=== PATIENT | female | born 1995 | race Caucasian/White ===

== ENCOUNTER 2017-08-20 17:02 | Emergency (ER) | payer MEDICAID ==
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
[2017-08-20] MEDS ORDERED: Ketorolac 60 MG/2 ML SDV IM ONE (18:38)
[2017-08-20] MEDS ORDERED: Ondansetron 4 MG Tab.DIS PO PRN (18:38)
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
== END 2017-08-20 19:00 | disposition home or self-care (01) ==
LOC: MW.ED 17:02
DX: S06.2X9A Diffuse traumatic brain injury with loss of consciousness of unspecified duration, initial encounter (principal); F07.81 Postconcussional syndrome; Z79.899 Other long term (current) drug therapy; Y04.8XXA Assault by other bodily force, initial encounter
CPT/HCPCS: 70450; 70486; 80305; 81001; 81025; 96372; 99284; A9270; J1885; 99283